=== PATIENT | female | born 1970 | race Caucasian/White ===

== ENCOUNTER 2017-08-13 05:34 | Day surgery (SDC) | payer BC, OTHER ==
[2017-08-13] MEDS ORDERED: LR 1,000 ML IV ONE (06:02)
--- NOTE | 2017-08-13 06:50 | PDHPUP ---
History & Physical Update H&P update statement: This history and physical update is based on an assessment of the patient which was completed after admission or registration (within 24 hours), but prior to the surgery/procedure. H&P update: H&P reviewed & patient examined, no change in patient's condition since H&P completed
[2017-08-13] MEDS ORDERED: MIDAZOLAM 2 MG/2 ML VIAL ONE (06:54)
[2017-08-13] MEDS ORDERED: fentaNYL 250 MCG/5 ML INJ ONE (07:13)
[2017-08-13] MEDS ORDERED: PROPOFOL/EMULSION 500 MG/50 ML BOTTLE IV ONE (07:14)
[2017-08-13] MEDS ORDERED: BUPIVACAINE 0.25% 30 ML SDV ONE (07:21)
[2017-08-13] MEDS ORDERED: LIDOCAINE 1% 300 MG/30 ML SDV ONE (07:21)
[2017-08-13] MEDS ORDERED: PAPAVERINE HCL 60 MG/2 ML SDV ONE (07:21)
--- NOTE | 2017-08-13 07:41 | PDANEPAE ---
ANE History of Present Illness 47 year old female for repair of pseudoaneurysm left wrist ANE Past Medical History - Cardiovascular History Hx Hypertension: No Hx Arrhythmias: No Hx Chest Pain: No Hx Coronary Artery / Peripheral Vascular Disease: No Hx CHF / Valvular Disease: No Hx Palpitations: No - Pulmonary History Hx COPD: No Hx Asthma/Reactive Airway Disease: No Hx Recent Upper Respiratory Infection: No Hx Oxygen in Use at Home: No Hx Sleep Apnea: No Sleep Apnea Screening Result - Last Documented: Negative - Neurologic History Hx Cerebrovascular Accident: No Hx Seizures: No Hx Dementia: No - Endocrine History Hx Diabetes: No - Renal History Hx Renal Disorders: No - Liver History Hx Hepatic Disorders: Yes Hepatic History Comment: CIRRHOSIS - Neurological & Psychiatric Hx Hx Neurological and Psychiatric Disorders: Yes Neurological / Psychiatric History Comment: ANXIETY - Cancer History Hx Cancer: No - Congenital Disorder History Hx Congenital Disorders: No - GI History Hx Gastrointestinal Disorders: Yes Gastrointestinal History Comment: Reflux - Other Health History Other Health History: none - Chronic Pain History Chronic Pain: Yes (left knee) - Surgical History Prior Surgeries: NONE ANE Review of Systems Review of Systems: - Exercise capacity METS (RN): 4 METS ANE Patient History - Allergies Allergies/Adverse Reactions: codeine Allergy (Verified 08/07/17 11:59) Rash - Home Medications Home Medications: Furosemide 30 mg TID 08/07/17 [Last Taken 1 Day Ago ~08/12/17] Lactulose 120 ml PO TID 08/07/17 [Last Taken 08/13/17 120ml] Levothyroxine 0.25 mg PO DAILY AT 10AM 08/07/17 [Last Taken 1 Day Ago ~08/12/17] Lorazepam 0.5 mg PO PRN PRN 08/07/17 [Last Taken 1 Day Ago ~08/12/17] Oxycontin 30 mg PO BID 08/07/17 [Last Taken 08/12/17] Spironolactone 100 mg PO BID 08/07/17 [Last Taken 08/12/17] Anucort-Hc 25 mg PO DAILY 08/13/17 [Last Taken 08/12/17] HYDROmorphone 2 mg PO TID 08/13/17 [Last Taken 08/12/17] Protonix 40mg (*) 40 mg PO BID 08/13/17 [Last Taken 08/13/17] - NPO status NPO Since - Liquids (Date): 08/12/17 NPO Since - Liquids (Time): 23:00 NPO Since - Solids (Date): 08/12/17 NPO Since - Solids (Time): 20:00 - Smoking Hx Smoking Status: Never smoked - Family Anes Hx Family Hx Anesthesia Complications: NONE ANE Labs/Vital Signs - Vital Signs Blood Pressure: 133/81 Heart Rate: 106 Respiratory Rate: 14 O2 Sat (%): 98 Height: 165.1 cm Weight: 90.718 kg ANE Physical Exam - Airway Mallampati Score: Class 2 - ASA Status ASA Status: III ANE Anesthesia Plan Anesthesia Plan: MAC
[2017-08-13] MEDS ORDERED: ONDANSETRON 4 MG/2 ML VIAL IVP PRN (07:42)
[2017-08-13] MEDS ORDERED: NALOXONE HCL 0.4 MG/ML INJ IVP PRN (07:42)
--- NOTE | 2017-08-13 07:42 | POSTANESTH ---
Post Anesthetic Evaluation Respiratory Status: Normal, Stable Level of Consciousness/Mental Status: Can Participate in Eval Pain Control: Adequate, Prn Tx Ordered Complications Possibly Related to Anesthesia: None Noted
--- NOTE | 2017-08-13 08:53 | POSTOPPROG ---
Post Op Note Date of Operation: 08/13/17 Surgeon: Juan F Lagos Machine Stone Polisher Apprentice: Carito Ramos Anesthesiologist: MAC Anesthesia: IV Sedation Pre-op Diagnosis: left wrist radial artery pseudoaneurysm Post-op Diagnosis: same Procedure: repair pseudoaneursym - left radial artery Findings: broad based neck pseudoaneurysms Inf/Abcess present in the surg proc area at time of surgery?: No EBL: Minimal Complications: no immediate Specimen(s): aneurysm
[2017-08-13] MEDS ORDERED: fentaNYL 100 MCG/2 ML INJ ONE (09:34)
[2017-08-13] MEDS: fentaNYL 100 MCG/2 ML INJ IVP PRN ×2 (09:37→09:49)
[2017-08-13] MEDS ORDERED: HYDROmorphONE/DILAUDID 1 MG/ML INJ IVP PRN (09:54)
[2017-08-13] MEDS ORDERED: HYDROmorphONE/DILAUDID 2 MG TAB PO ONE (10:00)
[2017-08-13] MEDS ORDERED: HYDROmorphONE/DILAUDID 2 MG TAB ONE (10:02)
[2017-08-13 10:42] VITALS: BP 121/63; O2SAT 100
[2017-08-13 10:49] VITALS: PULSE 84; RESP 17; TEMP 208.8
--- NOTE | 2017-08-13 11:59 | GOP ---
[f rep st] OPERATIVE REPORT DATE OF OPERATION: 08/13/2017 SURGEON: Juan F Lagos MD JAVA GOLDEN GATE DEVELOPER: STEPHANY Kelly. ANESTHESIA: MAC. ANESTHESIOLOGIST: Pravin Dumont MD. PREOPERATIVE DIAGNOSIS: Symptomatic left radial artery pseudoaneurysm. POSTOPERATIVE DIAGNOSIS: Symptomatic left radial artery pseudoaneurysm. PROCEDURE PERFORMED: Direct repair of left radial artery pseudoaneurysm. FINDINGS: Pseudoaneurysm INDICATIONS: 47-year-old female with an enlarging left wrist pseudoaneurysm from a remote suspect arterial line puncture with progressive symptoms. She has opted to undergo surgical repair at this time. Risks and benefits were explained of bleeding, infection, recurrence, arterial thrombosis, need for possible arterial ligation as well as nerve injury. All questions were answered. She desires to proceed. A nursing surgical services director is standard and necessary and customary for the safe performance of this. DESCRIPTION OF PROCEDURE: Monitored anesthesia care was started. The left wrist was infiltrated with 1% lidocaine and 0.25% Marcaine. A longitudinal incision was created over the distal radial artery. Subcutaneous tissues were divided down to the easily palpable 2 cm pseudoaneurysm. This was dissected back toward the radial artery, which was circumferentially encompassed both proximally and distally. The superficial branch of the radial nerve was identified and preserved. The wrist retinaculum was opened along for the remaining radial artery to be exposed. The aneurysm was a broad-based sac arising along the anterior surface confirming a pseudoaneurysm rather than a true aneurysm. Occluding clamps were placed upon the radial artery, and the aneurysm was transected. The defect was closed directly with a running back and forth 7-0 Prolene suture. Upon release of occluding clamps, the radial artery remained patent with no evidence of ongoing pulsatile flow or suggestion of weakening. Satisfactory hemostasis was assured. The wrist was closed in layers with absorbable suture. The skin was reapproximated with horizontal mattress nylon sutures. The patient was taken care from awake uneventfully. Copy requested to: Feliciaaubree Duong /[id number]/MODL [id number]
== END 2017-08-13 10:44 | disposition home or self-care (01) ==
LOC: FSGY 05:34
PROVIDERS: ATTEND Surgery
PROC: 03V Upper Arteries, Restriction (ICD-10-PCS; principal; 2017-08-13 07:15)
DX: I72.1 Aneurysm of artery of upper extremity (principal); E66.9 Obesity, unspecified; Z68.34 Body mass index [BMI] 34.0-34.9, adult
CPT/HCPCS: J1644; J2250; J2440; J2704; J3010